=== PATIENT | female | born 1995 | race Caucasian/White ===

== ENCOUNTER 2018-12-13 20:06 | Emergency (ER) | payer BC ==
[~2018-12-13 20:06] MED LIST: IBUP-1618 PO
[2018-12-13] MEDS ORDERED: ESCI20TA38 PO (20:14)
[2018-12-13] MEDS ORDERED: BCP PO (20:14)
[2018-12-13 20:30] VITALS: BP 118/72
[2018-12-13] MEDS ORDERED: AMOX-559 PO (20:51)
--- NOTE | 2018-12-13 20:56 | ER Report ---
History and Physical Time Seen By MD: 20:20 Hx. of Stated Complaint: DOG BITE TO FACE, ETOH HPI/ROS CHIEF COMPLAINT: Dog bite HISTORY OF PRESENT ILLNESS: This is a 23-year-old female who presents to the emergency department for a dog bite. Patient states that about 30 minutes prior to arrival, she was feeding her dog, then lying down with him and he turned around and nipped her in the face. Patient has a puncture wound to the right cheek. Abrasion to the left lower lip. Bleeding is controlled. No other wounds identified. Patient is tearful and appears intoxicated. No recent illnesses, no fevers or chills. No nausea or vomiting. REVIEW OF SYSTEMS: Respiratory: No cough, no dyspnea. Cardiovascular: No chest pain, no palpitations. Gastrointestinal: No vomiting, no abdominal pain. Musculoskeletal: No back pain. Integumentary: As above. Allergies: Coded Allergies: No Known Drug Allergies (Unverified , 12/13/18) Home Meds Active Scripts Amoxicillin/Pot Clav 875-125 Mg Tab (AUGMENTIN 875-125 TABLET) 1 Each Tablet, 1 TAB PO Q12H for 7 Days, #14 TAB 0 Refills Prov:RONEL ISRAEL PROCESS [employer]ORATORY SPECIALIST-BC 12/13/18 Reported Medications [Bcp] No Conflict Check, PO DAILY 12/13/18 Escitalopram Oxalate (LEXAPRO) 20 Mg Tablet, PO QDAY, TAB 12/13/18 Discontinued Reported Medications [None] No Conflict Check 07/03/12 Ibuprofen (Motrin) 400 Mg Tablet, 400 MG PO Q8H, #30 0 Refills 1 TAB EVERY 8 HOURS NEEDED FOR PAIN/SWELLING 01/05/08 Past Medical/Surgical History The patient has a past medical and surgical history of right ankle, right wrist fracture, left anterior cruciate ligament repair. Reviewed Nurses Notes: Yes Hx Smoking: No Exposure to Second Hand Smoke?: Yes Constitutional Vital Sign - Last 24 Hours 12/13/18 12/13/18 12/13/18 12/13/18 20:10 20:15 20:30 20:45 Temp 98.2 Pulse 98 105 94 Resp 14 B/P (MAP) 124/85 118/72 (87) Pulse Ox 91 94 92 80 O2 Delivery Room Air Physical Exam General Appearance: The patient is alert, has no immediate need for airway protection and no current signs of toxicity. Eyes: Pupils equal and round no injection. Respiratory: Chest is non tender, lungs are clear to auscultation. Cardiac: regular rate and rhythm. Gastrointestinal: Abdomen is soft and non tender, no masses, bowel sounds normal. Musculoskeletal: Neck: Neck is supple and non tender. Extremities have full range of motion and are non tender. Skin: 2.5cm bifurcated laceration/puncture wound to the right cheek. Bleeding controlled. Abrasion to lower lip with a small amount of swelling. No through wounds identified. DIFFERENTIAL DIAGNOSIS: After history and physical exam differential diagnosis was considered for laceration, puncture wound. Medical Decision Making ED Course/Re-evaluation ED Course The patient was admitted to room. A history and physical obtained. Differential diagnoses were considered. The wound was anesthetized, thoroughly cleansed and irrigated and repaired as noted below. The repair was very loose lead repaired as to help the wound to drain. The patient was started on Augmentin. I did talk to the patient and her family at length about the wound, dog bites and monitoring closely for signs of infection. Patient will be in [place] at a radiology conference when the sutures are to be removed, I did tell her that she needs to follow-up at an urgent care while in [place] to have the sutures removed. We also talked at length about signs of infection. They expressed understanding, the patient had no other questions or concerns at this time and was discharged home. I also told her that if she has a scar that she is displeased with she can follow-up with plastic surgery and they can revise the scar. Patient expressed understanding. Procedure: Laceration repair. Verbal consent was obtained from the patient. The 2.5 cm bifurcated laceration on the right cheek was anesthetized in the usual fashion. The wound was scrubbed and thoroughly irrigated, draped and explored to its base with a gloved finger. There were no deep structures involved. The wound was repaired with 3, 6-0 Prolene sutures, loosely sutured, simple interrupted. The wound repair was simple. The procedure was performed by myself. Decision to Disposition Date: Dec 13, 2018 Decision to Disposition Time: 21:09 Depart Departure Latest Vital Signs Vital Signs Date Time Temp Pulse Resp B/P (MAP) Pulse Ox O2 Delivery O2 Flow Rate FiO2 12/13/18 20:45 94 80 12/13/18 20:30 118/72 (87) 12/13/18 20:10 98.2 14 Room Air Impression: Primary Impression: Dog bite of face Condition: Improved Disposition: HOME OR SELF-CARE Referrals: SOFIA MORAES MD (PCP) New Scripts Amoxicillin/Pot Clav 875-125 Mg Tab (AUGMENTIN 875-125 TABLET) 1 Each Tablet 1 TAB PO Q12H for 7 Days, #14 TAB 0 Refills Prov: RONEL ISRAEL 12/13/18 Patient Instructions: Animal Bite (ED) Additional Instructions: Sutures were placed loosely to allow the wound to drain. Please follow up with your PCP in 5 days or return to the ED to have the sutures removed and reevaluation of the wound. Take the Augmentin as prescribed. Drink plenty of water. Get plenty of rest. Although you are on antibiotics, be sure to monitor closely for infection. As this is a facial injury due to a bite, there will be a scar, if the scar is concerning you can follow up with a plastic surgeon for a revision after the wound heals. Use sunscreen on the wound for at least one year, regularly to help with scarri ng. Return to the ED for any other concerns or worsening symptoms. Problem Qualifiers Primary Impression: Dog bite of face Encounter type: initial encounter Qualified Codes: S01.85XA - Open bite of other part of head, initial encounter; W54.0XXA - Bitten by dog, initial encounter RONEL ISRAEL PROCESS LABORATORY SPECIALIST- Dec 13, 2018 20:56
[2018-12-13] MEDS ORDERED: AMOX/CLAV 875 MG TAB PO ONE (21:00)
== END 2018-12-13 21:17 | disposition home or self-care (01) ==
LOC: ER 20:13
DX: S01.85XA Open bite of other part of head, initial encounter (principal); W54.0XXA Bitten by dog, initial encounter
CPT/HCPCS: 99283